=== PATIENT | male | born 1955 | race Caucasian/White ===

== ENCOUNTER 2017-05-20 02:53 | Emergency (ER) | payer MEDICARE, MEDICAID ==
[~2017-05-20] VITALS: Ht 177.8 cm; Wt 63.7 kg
[~2017-05-20 02:53] MED LIST: OXYC-302
[2017-05-20 03:00] VITALS: BP 114/72
== END 2017-05-20 03:59 | disposition left against medical advice (07) ==
LOC: ED 03:11
DX: M70.41 Prepatellar bursitis, right knee (principal); Y93.89 Activity, other specified; M25.561 Pain in right knee
CPT/HCPCS: 99283

== ENCOUNTER 2018-03-25 16:20 | Inpatient (IN) | payer MEDICARE, MEDICAID ==
[~2018-03-25] VITALS: Ht 177.8 cm; Wt 62.0 kg
[2018-03-25 17:16] LABS: PLATELET COUNT 199 x10^3/uL (130-400)
[2018-03-25 17:21] LABS: MEAN CORPUSCULAR HEMOGLOBIN 32.4 pg (27.5-34.5); MEAN CORPUSCULAR HGB CONC 33.7 g/dL (33.2-36.2); MEAN CORPUSCULAR VOLUME 96.1 fL (81-97); MEAN PLATELET VOLUME 7.3 fL (7.4-10.4); RED BLOOD COUNT 4.89 x10^6/uL (4.38-5.82); RED CELL DISTRIBUTION WIDTH 12.6 % (9.4-14.8)
[2018-03-25 17:23] LABS: BASOPHILS # (AUTO) 0.03 x10^3/uL (0-0.1); BASOPHILS % (AUTO) 0 % (0-1); EOSINOPHILS # (AUTO) 0.21 x10^3/uL (0-0.4); EOSINOPHILS % (AUTO) 2 % (1-7); LYMPHOCYTES # (AUTO) 2.24 x10^3/uL (1-3.4); LYMPHOCYTES % (AUTO) 25 % (22-44); MD NO; MONOCYTES # (AUTO) 0.61 x10^3/uL (0.2-0.8); MONOCYTES % (AUTO) 7 % (2-9); NEUTROPHILS # (AUTO) 5.79 x10^3/uL (1.8-6.8); NEUTROPHILS % (AUTO) 65 % (42-75)
[2018-03-25] MEDS ORDERED: EFAV1TAB PO (17:28)
[2018-03-25] MEDS ORDERED: LITH150C PO (17:28)
[2018-03-25] MEDS ORDERED: RISP0.2518 PO (17:28)
[2018-03-25 17:34] LABS: ALANINE AMINOTRANSFERASE 21 U/L (12-78); ALBUMIN 4.1 g/dL (3.4-5.0); ANION GAP 5 mmol/L (5-15); CALCIUM 8.6 mg/dL (8.5-10.1); CHLORIDE 106 mmol/L (98-107); SALICYLATE LEVEL 2.5 mg/dL (2.8-20.0)
[2018-03-25 17:36] LABS: ALKALINE PHOSPHATASE 91 U/L (45-117); BILIRUBIN,TOTAL 0.5 mg/dL (0.2-1.0); CREATININE 0.92 mg/dL (0.7-1.3); TOTAL PROTEIN 8.1 g/dL (6.4-8.2)
[2018-03-25 17:37] LABS: ACETAMINOPHEN < 2 mcg/mL (10-30)
[2018-03-25 19:31] LABS: AMPHETAMINE SCREEN, URINE Negative (Negative); BARBITURATE SCREEN, URINE Negative (Negative); BENZODIAZEPINE SCREEN, URINE Negative (Negative); CANNABINOID SCREEN, URINE Negative (Negative); COCAINE SCREEN, URINE Negative (Negative); METHADONE SCREEN, URINE Negative (Negative); OPIATE SCREEN, URINE Negative (Negative)
[2018-03-26] MEDS ORDERED: LORazepam 2 MG/ML, 1ML IM PRN (04:30)
[2018-03-26] MEDS: CHLORDIAZEPOXIDE 25 MG CAPSULE PO SCH (08:45)
[2018-03-26] MEDS: EFAVIRENZ/EMTRICITAB/TENOFOVIR 600MG-200MG-300MG TABLET PO SCH (08:45)
[2018-03-26 09:01] LABS: CLOSTRIDIUM DIFFICILE ANTIGEN NEGATIVE; CLOSTRIDIUM DIFFICILE TOXIN NEGATIVE (Negative)
[2018-03-26 09:31] LABS: CRYPTOSPORIDIUM ANTIGEN Negative (Negative)
[2018-03-26 19:30] VITALS: BP 139/85
[2018-03-26] MEDS: DIPHENOXYLATE/ATROPINE TABLET PO PRN (22:53)
[2018-03-26] MEDS: RISPERIDONE 1 MG TABLET PO SCH (22:53)
[2018-03-26 23:10] VITALS: BP 139/85
[2018-03-27] MEDS: CHLORDIAZEPOXIDE 25 MG CAPSULE PO SCH ×3 (00:10→22:18)
[2018-03-27] MEDS: EFAVIRENZ/EMTRICITAB/TENOFOVIR 600MG-200MG-300MG TABLET PO SCH ×3 (00:11→22:22)
[2018-03-27 01:15] VITALS: BP 105/62
[2018-03-27] MEDS: NICOTINE 21 MG/24 HR PATCH.TD24 TD SCH (05:35)
[2018-03-27 06:52] VITALS: BP 90/61
[2018-03-27 10:39] LABS: BASOPHILS # (AUTO) 0.02 x10^3/uL (0-0.1); BASOPHILS % (AUTO) 0 % (0-1); EOSINOPHILS % (AUTO) 3 % (1-7); LYMPHOCYTES # (AUTO) 1.83 x10^3/uL (1-3.4); LYMPHOCYTES % (AUTO) 31 % (22-44); MD NO; MEAN CORPUSCULAR HEMOGLOBIN 33.3 pg (27.5-34.5); MEAN CORPUSCULAR HGB CONC 34.5 g/dL (33.2-36.2); MEAN CORPUSCULAR VOLUME 96.6 fL (81-97); MEAN PLATELET VOLUME 7.2 fL (7.4-10.4); MONOCYTES # (AUTO) 0.42 x10^3/uL (0.2-0.8); MONOCYTES % (AUTO) 7 % (2-9); NEUTROPHILS % (AUTO) 58 % (42-75); PLATELET COUNT 177 x10^3/uL (130-400); RED BLOOD COUNT 4.58 x10^6/uL (4.38-5.82); RED CELL DISTRIBUTION WIDTH 12.9 % (9.4-14.8)
[2018-03-27 10:51] LABS: ALANINE AMINOTRANSFERASE 18 U/L (12-78); ALBUMIN 3.6 g/dL (3.4-5.0); ANION GAP 6 mmol/L (5-15); CALCIUM 8.3 mg/dL (8.5-10.1); CHLORIDE 111 mmol/L (98-107); CREATININE 0.92 mg/dL (0.7-1.3)
[2018-03-27 10:53] LABS: ALKALINE PHOSPHATASE 80 U/L (45-117); BILIRUBIN,TOTAL 0.8 mg/dL (0.2-1.0)
[2018-03-27 13:22] VITALS: BP 105/71
[2018-03-27] MEDS: OXYcodone IR 5MG TABLET PO PRN (17:50)
[2018-03-27 19:39] VITALS: BP 122/83
[2018-03-27] MEDS: RISPERIDONE 1 MG TABLET PO SCH (22:18)
[2018-03-28 02:08] VITALS: BP 98/67
[2018-03-28] MEDS: OXYcodone IR 5MG TABLET PO PRN (02:58)
[2018-03-28] MEDS: NICOTINE 21 MG/24 HR PATCH.TD24 TD SCH (05:50)
[2018-03-28 07:41] VITALS: BP 108/71
[2018-03-28] MEDS: DIPHENOXYLATE/ATROPINE TABLET PO PRN (08:42)
[2018-03-28] MEDS: CHLORDIAZEPOXIDE 25 MG CAPSULE PO SCH ×2 (08:42→20:17)
[2018-03-28] MEDS: EFAVIRENZ/EMTRICITAB/TENOFOVIR 600MG-200MG-300MG TABLET PO SCH ×2 (08:42→20:16)
[2018-03-28 15:29] VITALS: BP 112/78
[2018-03-28 19:49] VITALS: BP 118/74
[2018-03-28] MEDS: RISPERIDONE 1 MG TABLET PO SCH (20:17)
[2018-03-29 01:25] VITALS: BP 112/69
[2018-03-29 04:39] LABS: ANION GAP 5 mmol/L (5-15); CHLORIDE 109 mmol/L (98-107); CREATININE 0.97 mg/dL (0.7-1.3)
[2018-03-29] MEDS: NICOTINE 21 MG/24 HR PATCH.TD24 TD SCH ×2 (04:49→04:52)
[2018-03-29 07:24] VITALS: BP 110/74
[2018-03-29] MEDS: CHLORDIAZEPOXIDE 25 MG CAPSULE PO SCH ×2 (10:50→21:15)
[2018-03-29] MEDS: LOPERAMIDE 2 MG CAPSULE PO SCH ×3 (10:50→23:30)
[2018-03-29] MEDS: EFAVIRENZ/EMTRICITAB/TENOFOVIR 600MG-200MG-300MG TABLET PO SCH ×2 (10:50→21:14)
[2018-03-29 14:03] VITALS: BP 117/80
[2018-03-29 19:03] VITALS: BP 120/77
[2018-03-29] MEDS: RISPERIDONE 1 MG TABLET PO SCH (21:15)
[2018-03-30 01:27] VITALS: BP 93/63
[2018-03-30] MEDS: LOPERAMIDE 2 MG CAPSULE PO SCH ×4 (05:11→21:31)
[2018-03-30] MEDS: NICOTINE 21 MG/24 HR PATCH.TD24 TD SCH (05:12)
[2018-03-30 07:42] VITALS: BP 110/72
[2018-03-30] MEDS: CHLORDIAZEPOXIDE 25 MG CAPSULE PO SCH ×2 (08:33→21:31)
[2018-03-30] MEDS: EFAVIRENZ/EMTRICITAB/TENOFOVIR 600MG-200MG-300MG TABLET PO SCH ×2 (08:33→21:31)
[2018-03-30 12:45] VITALS: BP 96/66
[2018-03-30 18:37] VITALS: BP 117/72
[2018-03-30] MEDS: RISPERIDONE 1 MG TABLET PO SCH (21:31)
[2018-03-31 01:32] VITALS: BP 105/73
[2018-03-31] MEDS: LOPERAMIDE 2 MG CAPSULE PO SCH ×4 (03:19→21:49)
[2018-03-31] MEDS: NICOTINE 21 MG/24 HR PATCH.TD24 TD SCH (05:23)
[2018-03-31 07:28] VITALS: BP 102/69
[2018-03-31] MEDS: CHLORDIAZEPOXIDE 25 MG CAPSULE PO SCH ×2 (09:21→20:04)
[2018-03-31] MEDS: EFAVIRENZ/EMTRICITAB/TENOFOVIR 600MG-200MG-300MG TABLET PO SCH ×2 (09:21→20:04)
[2018-03-31 14:34] VITALS: BP 109/69
[2018-03-31] MEDS: OXYcodone IR 5MG TABLET PO PRN ×2 (15:10→20:09)
[2018-03-31] MEDS: DIPHENOXYLATE/ATROPINE TABLET PO PRN (15:10)
[2018-03-31 19:52] VITALS: BP 97/65
[2018-03-31] MEDS: RISPERIDONE 1 MG TABLET PO SCH (20:04)
[2018-04-01 02:55] VITALS: BP 95/62
[2018-04-01] MEDS: LOPERAMIDE 2 MG CAPSULE PO SCH ×3 (02:59→15:46)
[2018-04-01 10:00] VITALS: BP 95/60
[2018-04-01] MEDS: CHLORDIAZEPOXIDE 25 MG CAPSULE PO SCH ×2 (11:16→20:04)
[2018-04-01] MEDS: EFAVIRENZ/EMTRICITAB/TENOFOVIR 600MG-200MG-300MG TABLET PO SCH ×2 (11:17→20:04)
[2018-04-01] MEDS: NICOTINE 21 MG/24 HR PATCH.TD24 TD SCH (11:17)
[2018-04-01] MEDS: OXYcodone IR 5MG TABLET PO PRN ×3 (11:50→20:04)
[2018-04-01 14:45] VITALS: BP 116/75
[2018-04-01 19:15] VITALS: BP 105/68
[2018-04-01] MEDS: RISPERIDONE 1 MG TABLET PO SCH (20:04)
[2018-04-02 00:13] VITALS: BP 99/63
[2018-04-02 07:07] VITALS: BP 106/72
[2018-04-02] MEDS: LOPERAMIDE 2 MG CAPSULE PO PRN (09:56)
[2018-04-02] MEDS: CHLORDIAZEPOXIDE 25 MG CAPSULE PO SCH (09:56)
[2018-04-02] MEDS: EFAVIRENZ/EMTRICITAB/TENOFOVIR 600MG-200MG-300MG TABLET PO SCH ×2 (09:56→21:02)
[2018-04-02] MEDS: NICOTINE 21 MG/24 HR PATCH.TD24 TD SCH (09:57)
[2018-04-02 13:24] VITALS: BP 105/68
[2018-04-02 18:37] VITALS: BP 109/68
[2018-04-02] MEDS ORDERED: QUETIAPINE 100MG TABLET PO SCH (21:00)
[2018-04-02] MEDS: DIPHENOXYLATE/ATROPINE TABLET PO PRN (21:01)
[2018-04-02] MEDS: LITHIUM CARBONATE 150 MG CAPSULE PO SCH (21:02)
[2018-04-03 03:13] VITALS: BP 92/56
[2018-04-03 07:41] VITALS: BP 110/75
[2018-04-03] MEDS: LITHIUM CARBONATE 150 MG CAPSULE PO SCH ×2 (08:17→19:38)
[2018-04-03] MEDS: EFAVIRENZ/EMTRICITAB/TENOFOVIR 600MG-200MG-300MG TABLET PO SCH ×2 (08:17→19:39)
[2018-04-03] MEDS: LOPERAMIDE 2 MG CAPSULE PO PRN (08:18)
[2018-04-03] MEDS: NICOTINE 21 MG/24 HR PATCH.TD24 TD SCH (08:18)
[2018-04-03 15:54] VITALS: BP 110/70
[2018-04-03 18:24] VITALS: BP 119/73
[2018-04-03] MEDS: QUETIAPINE 100MG TABLET PO SCH (19:39)
[2018-04-04 00:32] VITALS: BP 100/55
[2018-04-04] MEDS ORDERED: LORazepam 1MG TABLET ONE (00:40)
[2018-04-04 07:20] VITALS: BP 95/61
[2018-04-04] MEDS: LITHIUM CARBONATE 150 MG CAPSULE PO SCH ×2 (08:46→19:37)
[2018-04-04] MEDS: EFAVIRENZ/EMTRICITAB/TENOFOVIR 600MG-200MG-300MG TABLET PO SCH ×2 (08:46→19:37)
[2018-04-04] MEDS: NICOTINE 21 MG/24 HR PATCH.TD24 TD SCH (08:48)
[2018-04-04] MEDS: DIPHENOXYLATE/ATROPINE TABLET PO PRN ×2 (08:58→14:17)
[2018-04-04] MEDS: LOPERAMIDE 2 MG CAPSULE PO PRN (11:01)
[2018-04-04 13:24] VITALS: BP 129/78
[2018-04-04] MEDS: QUETIAPINE 100MG TABLET PO SCH (19:38)
[2018-04-04 19:40] VITALS: BP 113/73
[2018-04-05 01:31] VITALS: BP 95/59
[2018-04-05 08:29] VITALS: BP 100/62
[2018-04-05] MEDS: LITHIUM CARBONATE 150 MG CAPSULE PO SCH ×2 (10:35→21:58)
[2018-04-05] MEDS: NICOTINE 21 MG/24 HR PATCH.TD24 TD SCH (10:35)
[2018-04-05] MEDS: EFAVIRENZ/EMTRICITAB/TENOFOVIR 600MG-200MG-300MG TABLET PO SCH ×2 (10:36→21:58)
[2018-04-05 14:55] VITALS: BP 103/65
[2018-04-05 19:34] VITALS: BP 112/71
[2018-04-05] MEDS: QUETIAPINE 100MG TABLET PO SCH (21:58)
[2018-04-06 01:17] VITALS: BP 104/72
[2018-04-06 07:26] VITALS: BP 108/69
[2018-04-06] MEDS: LITHIUM CARBONATE 150 MG CAPSULE PO SCH ×2 (07:55→21:00)
[2018-04-06] MEDS: DIPHENOXYLATE/ATROPINE TABLET PO PRN (07:55)
[2018-04-06] MEDS: NICOTINE 21 MG/24 HR PATCH.TD24 TD SCH (07:55)
[2018-04-06] MEDS: LOPERAMIDE 2 MG CAPSULE PO PRN (07:55)
[2018-04-06] MEDS: EFAVIRENZ/EMTRICITAB/TENOFOVIR 600MG-200MG-300MG TABLET PO SCH ×2 (07:55→21:00)
[2018-04-06 13:31] VITALS: BP 121/76
[2018-04-06] MEDS ORDERED: LOPERAMIDE 2 MG CAPSULE PO PRN (16:00)
[2018-04-06 17:40] VITALS: BP 126/68
[2018-04-06 20:27] VITALS: BP 106/67
[2018-04-06] MEDS: QUETIAPINE 100MG TABLET PO SCH (21:00)
[2018-04-07] MEDS: LITHIUM CARBONATE 150 MG CAPSULE PO SCH ×3 (02:02→21:21)
[2018-04-07] MEDS: QUETIAPINE 100MG TABLET PO SCH ×2 (02:03→21:21)
[2018-04-07] MEDS: EFAVIRENZ/EMTRICITAB/TENOFOVIR 600MG-200MG-300MG TABLET PO SCH ×2 (02:16→17:42)
[2018-04-07 08:00] VITALS: BP 114/72
[2018-04-07] MEDS: NICOTINE 21 MG/24 HR PATCH.TD24 TD SCH (09:33)
[2018-04-07 19:58] VITALS: BP 109/70
[2018-04-07] MEDS: PANCRELIPASE 24,000 CAPSULE.DR PO SCH (20:00)
[2018-04-08] MEDS: PANCRELIPASE 24,000 CAPSULE.DR PO SCH ×3 (08:08→17:01)
[2018-04-08 08:44] VITALS: BP 122/81
[2018-04-08] MEDS: NICOTINE 21 MG/24 HR PATCH.TD24 TD SCH (09:04)
[2018-04-08] MEDS: LITHIUM CARBONATE 150 MG CAPSULE PO SCH ×2 (09:04→21:26)
[2018-04-08] MEDS: EFAVIRENZ/EMTRICITAB/TENOFOVIR 600MG-200MG-300MG TABLET PO SCH ×2 (09:53→21:28)
[2018-04-08 19:43] VITALS: BP 107/69
[2018-04-08] MEDS: QUETIAPINE 100MG TABLET PO SCH (21:27)
[2018-04-09] MEDS: PANCRELIPASE 24,000 CAPSULE.DR PO SCH ×3 (08:13→16:34)
[2018-04-09 08:30] VITALS: BP 125/81
[2018-04-09] MEDS: EFAVIRENZ/EMTRICITAB/TENOFOVIR 600MG-200MG-300MG TABLET PO SCH ×2 (09:04→21:29)
[2018-04-09] MEDS: LITHIUM CARBONATE 150 MG CAPSULE PO SCH ×2 (09:04→21:29)
[2018-04-09] MEDS: NICOTINE 21 MG/24 HR PATCH.TD24 TD SCH (09:04)
[2018-04-09 19:47] VITALS: BP 132/80
[2018-04-09] MEDS: QUETIAPINE 100MG TABLET PO SCH (21:29)
[2018-04-10 08:00] VITALS: BP 128/75
[2018-04-10] MEDS: PANCRELIPASE 24,000 CAPSULE.DR PO SCH ×3 (09:15→16:30)
[2018-04-10] MEDS: NICOTINE 21 MG/24 HR PATCH.TD24 TD SCH (09:15)
[2018-04-10] MEDS: LITHIUM CARBONATE 150 MG CAPSULE PO SCH ×2 (09:15→20:29)
[2018-04-10 09:40] VITALS: BP 160/92
[2018-04-10] MEDS: EFAVIRENZ/EMTRICITAB/TENOFOVIR 600MG-200MG-300MG TABLET PO SCH ×2 (09:49→20:28)
[2018-04-10] MEDS: ONDANSETRON ODT 4 MG PO PRN (11:50)
[2018-04-10 14:46] LABS: BASOPHILS # (AUTO) 0.03 x10^3/uL (0-0.1); BASOPHILS % (AUTO) 1 % (0-1); EOSINOPHILS # (AUTO) 0.09 x10^3/uL (0-0.4); EOSINOPHILS % (AUTO) 2 % (1-7); LYMPHOCYTES # (AUTO) 1.64 x10^3/uL (1-3.4); LYMPHOCYTES % (AUTO) 29 % (22-44); MD NO; MEAN CORPUSCULAR HEMOGLOBIN 32.7 pg (27.5-34.5); MEAN CORPUSCULAR HGB CONC 34.3 g/dL (33.2-36.2); MEAN CORPUSCULAR VOLUME 95.3 fL (81-97); MEAN PLATELET VOLUME 7.4 fL (7.4-10.4); MONOCYTES # (AUTO) 0.44 x10^3/uL (0.2-0.8); MONOCYTES % (AUTO) 8 % (2-9); NEUTROPHILS # (AUTO) 3.43 x10^3/uL (1.8-6.8); NEUTROPHILS % (AUTO) 61 % (42-75); PLATELET COUNT 196 x10^3/uL (130-400)
[2018-04-10 14:56] LABS: ALBUMIN 4.1 g/dL (3.4-5.0); ANION GAP 5 mmol/L (5-15); CALCIUM 9.2 mg/dL (8.5-10.1); CHLORIDE 106 mmol/L (98-107)
[2018-04-10 15:00] LABS: ALANINE AMINOTRANSFERASE 46 U/L (12-78); ALKALINE PHOSPHATASE 85 U/L (45-117); BILIRUBIN,TOTAL 0.6 mg/dL (0.2-1.0); CREATININE 0.98 mg/dL (0.7-1.3); TOTAL PROTEIN 8.3 g/dL (6.4-8.2)
[2018-04-10 19:49] VITALS: BP 130/81
[2018-04-10] MEDS: QUETIAPINE 100MG TABLET PO SCH (20:32)
[2018-04-10] MEDS: OXYcodone IR 5MG TABLET PO PRN (22:56)
[2018-04-11 08:32] VITALS: BP 106/62
[2018-04-11] MEDS: ONDANSETRON ODT 4 MG PO PRN ×2 (09:25→09:26)
[2018-04-11] MEDS: NICOTINE 21 MG/24 HR PATCH.TD24 TD SCH ×2 (09:26→09:30)
[2018-04-11] MEDS: EFAVIRENZ/EMTRICITAB/TENOFOVIR 600MG-200MG-300MG TABLET PO SCH ×2 (09:26→22:10)
[2018-04-11] MEDS: LITHIUM CARBONATE 150 MG CAPSULE PO SCH ×2 (09:27→22:09)
[2018-04-11] MEDS: PANCRELIPASE 24,000 CAPSULE.DR PO SCH ×3 (09:52→16:35)
[2018-04-11 16:40] VITALS: BP 95/62
[2018-04-11 17:23] VITALS: BP 97/56
[2018-04-11 17:28] LABS: BASOPHILS # (AUTO) 0.02 x10^3/uL (0-0.1); BASOPHILS % (AUTO) 0 % (0-1); EOSINOPHILS # (AUTO) 0.12 x10^3/uL (0-0.4); EOSINOPHILS % (AUTO) 2 % (1-7); LYMPHOCYTES # (AUTO) 2.06 x10^3/uL (1-3.4); LYMPHOCYTES % (AUTO) 35 % (22-44); MD NO; MEAN CORPUSCULAR HEMOGLOBIN 33.1 pg (27.5-34.5); MEAN CORPUSCULAR HGB CONC 35.1 g/dL (33.2-36.2); MEAN CORPUSCULAR VOLUME 94.5 fL (81-97); MEAN PLATELET VOLUME 7.6 fL (7.4-10.4); MONOCYTES % (AUTO) 9 % (2-9); NEUTROPHILS # (AUTO) 3.17 x10^3/uL (1.8-6.8); NEUTROPHILS % (AUTO) 54 % (42-75); PLATELET COUNT 177 x10^3/uL (130-400); RED BLOOD COUNT 5.21 x10^6/uL (4.38-5.82); RED CELL DISTRIBUTION WIDTH 13.4 % (9.4-14.8)
[2018-04-11 17:35] LABS: ALANINE AMINOTRANSFERASE 39 U/L (12-78); ANION GAP 7 mmol/L (5-15); CALCIUM 8.8 mg/dL (8.5-10.1); CHLORIDE 109 mmol/L (98-107); CREATININE 1.04 mg/dL (0.7-1.3)
[2018-04-11 17:38] LABS: ALKALINE PHOSPHATASE 90 U/L (45-117); BILIRUBIN,TOTAL 0.8 mg/dL (0.2-1.0); TOTAL PROTEIN 8.1 g/dL (6.4-8.2)
[2018-04-11 19:45] VITALS: BP 107/66
[2018-04-11] MEDS: QUETIAPINE 100MG TABLET PO SCH (22:10)
[2018-04-11] MEDS: SODIUM CHLORIDE 0.9% 1,000 ML IV SCH ×2 (22:10→23:40)
[2018-04-12 03:27] VITALS: BP 106/67
[2018-04-12] MEDS: SODIUM CHLORIDE 0.9% 1,000 ML IV SCH ×3 (04:46→20:43)
[2018-04-12 05:08] LABS: BASOPHILS # (AUTO) 0.03 x10^3/uL (0-0.1); BASOPHILS % (AUTO) 1 % (0-1); EOSINOPHILS # (AUTO) 0.22 x10^3/uL (0-0.4); EOSINOPHILS % (AUTO) 4 % (1-7); LYMPHOCYTES # (AUTO) 2.16 x10^3/uL (1-3.4); LYMPHOCYTES % (AUTO) 40 % (22-44); MD NO; MEAN CORPUSCULAR HEMOGLOBIN 33.2 pg (27.5-34.5); MEAN CORPUSCULAR HGB CONC 34.7 g/dL (33.2-36.2); MEAN CORPUSCULAR VOLUME 95.6 fL (81-97); MEAN PLATELET VOLUME 7.4 fL (7.4-10.4); MONOCYTES # (AUTO) 0.51 x10^3/uL (0.2-0.8); MONOCYTES % (AUTO) 9 % (2-9); NEUTROPHILS # (AUTO) 2.46 x10^3/uL (1.8-6.8); NEUTROPHILS % (AUTO) 46 % (42-75); PLATELET COUNT 162 x10^3/uL (130-400); RED BLOOD COUNT 4.72 x10^6/uL (4.38-5.82); RED CELL DISTRIBUTION WIDTH 13.4 % (9.4-14.8)
[2018-04-12 05:19] LABS: ALBUMIN 3.6 g/dL (3.4-5.0); ANION GAP 5 mmol/L (5-15); CALCIUM 8.4 mg/dL (8.5-10.1); CHLORIDE 112 mmol/L (98-107)
[2018-04-12 05:20] LABS: CREATININE 1.03 mg/dL (0.7-1.3)
[2018-04-12] MEDS ORDERED: POTASSIUM CHLORIDE 40 MEQ in SODIUM CHLORIDE 0.9% 500 ML IV ONE ×2 (05:30→11:30)
[2018-04-12] MEDS: NICOTINE 21 MG/24 HR PATCH.TD24 TD SCH (09:39)
[2018-04-12] MEDS: CALCIUM CARBONATE 500 MG TABLET PO SCH ×2 (09:39→20:39)
[2018-04-12] MEDS: EFAVIRENZ/EMTRICITAB/TENOFOVIR 600MG-200MG-300MG TABLET PO SCH ×2 (09:39→20:39)
[2018-04-12] MEDS: PANCRELIPASE 24,000 CAPSULE.DR PO SCH ×3 (09:39→16:12)
[2018-04-12] MEDS: LITHIUM CARBONATE 150 MG CAPSULE PO SCH ×2 (09:39→20:39)
[2018-04-12] MEDS: ONDANSETRON ODT 4 MG PO PRN ×2 (09:41→15:48)
[2018-04-12 10:01] LABS: CLOSTRIDIUM DIFFICILE ANTIGEN NEGATIVE; CLOSTRIDIUM DIFFICILE TOXIN NEGATIVE (Negative)
[2018-04-12 13:05] VITALS: BP 96/59
[2018-04-12 15:44] LABS: CRYPTOSPORIDIUM ANTIGEN Negative (Negative)
[2018-04-12 17:40] VITALS: BP 116/74
[2018-04-12 18:56] VITALS: BP 124/83
[2018-04-12] MEDS: QUETIAPINE 100MG TABLET PO SCH (20:39)
[2018-04-13 02:28] VITALS: BP 111/74
[2018-04-13] MEDS: SODIUM CHLORIDE 0.9% 1,000 ML IV SCH ×2 (03:31→13:00)
[2018-04-13 05:24] LABS: BASOPHILS # (AUTO) 0.03 x10^3/uL (0-0.1); BASOPHILS % (AUTO) 1 % (0-1); EOSINOPHILS # (AUTO) 0.27 x10^3/uL (0-0.4); EOSINOPHILS % (AUTO) 6 % (1-7); LYMPHOCYTES # (AUTO) 1.86 x10^3/uL (1-3.4); LYMPHOCYTES % (AUTO) 39 % (22-44); MD NO; MEAN CORPUSCULAR HEMOGLOBIN 32.6 pg (27.5-34.5); MEAN CORPUSCULAR HGB CONC 34.6 g/dL (33.2-36.2); MEAN CORPUSCULAR VOLUME 94.3 fL (81-97); MEAN PLATELET VOLUME 7.7 fL (7.4-10.4); MONOCYTES # (AUTO) 0.46 x10^3/uL (0.2-0.8); MONOCYTES % (AUTO) 10 % (2-9); NEUTROPHILS # (AUTO) 2.13 x10^3/uL (1.8-6.8); NEUTROPHILS % (AUTO) 45 % (42-75); PLATELET COUNT 160 x10^3/uL (130-400); RED BLOOD COUNT 4.35 x10^6/uL (4.38-5.82); RED CELL DISTRIBUTION WIDTH 13.4 % (9.4-14.8)
[2018-04-13 05:34] LABS: ALBUMIN 3.3 g/dL (3.4-5.0); ANION GAP 5 mmol/L (5-15); CHLORIDE 114 mmol/L (98-107)
[2018-04-13 05:35] LABS: CREATININE 0.82 mg/dL (0.7-1.3)
[2018-04-13] MEDS ORDERED: POTASSIUM CHLORIDE 40 MEQ in SODIUM CHLORIDE 0.9% 500 ML IV ONE (06:30)
[2018-04-13 07:26] VITALS: BP 120/76
[2018-04-13] MEDS: PANCRELIPASE 24,000 CAPSULE.DR PO SCH ×3 (08:00→17:55)
[2018-04-13] MEDS: NICOTINE 21 MG/24 HR PATCH.TD24 TD SCH (09:00)
[2018-04-13] MEDS: LITHIUM CARBONATE 150 MG CAPSULE PO SCH ×2 (09:58→20:59)
[2018-04-13] MEDS: ONDANSETRON ODT 4 MG PO PRN (09:58)
[2018-04-13] MEDS: EFAVIRENZ/EMTRICITAB/TENOFOVIR 600MG-200MG-300MG TABLET PO SCH ×2 (09:59→21:00)
[2018-04-13] MEDS: CALCIUM CARBONATE 500 MG TABLET PO SCH ×2 (09:59→20:59)
[2018-04-13 13:33] VITALS: BP 131/83
[2018-04-13 19:37] VITALS: BP 124/78
[2018-04-13] MEDS: QUETIAPINE 100MG TABLET PO SCH (21:00)
[2018-04-13] MEDS ORDERED: ACETAMINOPHEN 325 MG TABLET PO ONE (23:30)
[2018-04-14 00:47] VITALS: BP 118/79
[2018-04-14] MEDS: SODIUM CHLORIDE 0.9% 1,000 ML IV SCH ×3 (03:01→16:27)
[2018-04-14 04:37] LABS: BASOPHILS # (AUTO) 0.03 x10^3/uL (0-0.1); BASOPHILS % (AUTO) 1 % (0-1); EOSINOPHILS # (AUTO) 0.28 x10^3/uL (0-0.4); EOSINOPHILS % (AUTO) 5 % (1-7); LYMPHOCYTES # (AUTO) 2.07 x10^3/uL (1-3.4); LYMPHOCYTES % (AUTO) 39 % (22-44); MD NO; MEAN CORPUSCULAR HEMOGLOBIN 32.8 pg (27.5-34.5); MEAN CORPUSCULAR HGB CONC 34.6 g/dL (33.2-36.2); MEAN CORPUSCULAR VOLUME 94.9 fL (81-97); MEAN PLATELET VOLUME 7.4 fL (7.4-10.4); MONOCYTES # (AUTO) 0.55 x10^3/uL (0.2-0.8); MONOCYTES % (AUTO) 11 % (2-9); NEUTROPHILS # (AUTO) 2.33 x10^3/uL (1.8-6.8); NEUTROPHILS % (AUTO) 44 % (42-75); PLATELET COUNT 165 x10^3/uL (130-400); RED BLOOD COUNT 4.48 x10^6/uL (4.38-5.82); RED CELL DISTRIBUTION WIDTH 13.4 % (9.4-14.8)
[2018-04-14 04:50] LABS: ALBUMIN 3.5 g/dL (3.4-5.0); ANION GAP 4 mmol/L (5-15); CALCIUM 8.5 mg/dL (8.5-10.1); CHLORIDE 114 mmol/L (98-107)
[2018-04-14 04:51] LABS: CREATININE 0.83 mg/dL (0.7-1.3)
[2018-04-14 07:41] VITALS: BP 113/82
[2018-04-14] MEDS: LITHIUM CARBONATE 150 MG CAPSULE PO SCH ×2 (08:21→20:54)
[2018-04-14] MEDS: CALCIUM CARBONATE 500 MG TABLET PO SCH ×2 (08:21→20:54)
[2018-04-14] MEDS: PANCRELIPASE 24,000 CAPSULE.DR PO SCH ×3 (08:21→17:40)
[2018-04-14] MEDS: EFAVIRENZ/EMTRICITAB/TENOFOVIR 600MG-200MG-300MG TABLET PO SCH ×2 (08:21→20:54)
[2018-04-14] MEDS: NICOTINE 21 MG/24 HR PATCH.TD24 TD SCH (08:22)
[2018-04-14 12:46] VITALS: BP 130/80
[2018-04-14 19:17] VITALS: BP 135/83
[2018-04-14] MEDS: QUETIAPINE 100MG TABLET PO SCH (20:54)
[2018-04-14] MEDS: OXYcodone IR 5MG TABLET PO PRN (23:02)
[2018-04-15] MEDS: SODIUM CHLORIDE 0.9% 1,000 ML IV SCH ×4 (00:29→20:20)
[2018-04-15 01:10] VITALS: BP 133/85
[2018-04-15 07:32] VITALS: BP 113/67
[2018-04-15] MEDS: CALCIUM CARBONATE 500 MG TABLET PO SCH ×2 (08:30→20:20)
[2018-04-15] MEDS: LITHIUM CARBONATE 150 MG CAPSULE PO SCH (08:30)
[2018-04-15] MEDS: PANCRELIPASE 24,000 CAPSULE.DR PO SCH ×3 (08:30→17:29)
[2018-04-15] MEDS: NICOTINE 21 MG/24 HR PATCH.TD24 TD SCH (08:31)
[2018-04-15] MEDS: EFAVIRENZ/EMTRICITAB/TENOFOVIR 600MG-200MG-300MG TABLET PO SCH (08:36)
[2018-04-15] MEDS ORDERED: DIPHENOXYLATE/ATROPINE TABLET PO PRN (09:00)
[2018-04-15] MEDS ORDERED: EFAVIRENZ/EMTRICITAB/TENOFOVIR 600MG-200MG-300MG TABLET PO SCH (09:00)
[2018-04-15 13:41] VITALS: BP 130/84
[2018-04-15] MEDS: DIPHENOXYLATE/ATROPINE TABLET PO SCH ×2 (17:28→22:10)
[2018-04-15 19:27] VITALS: BP 122/80
[2018-04-15] MEDS: QUETIAPINE 100MG TABLET PO SCH (20:20)
[2018-04-16 01:13] VITALS: BP 101/58
[2018-04-16] MEDS: SODIUM CHLORIDE 0.9% 1,000 ML IV SCH ×4 (03:08→19:57)
[2018-04-16 05:47] LABS: ANION GAP 5 mmol/L (5-15); CALCIUM 8.1 mg/dL (8.5-10.1); CHLORIDE 115 mmol/L (98-107)
[2018-04-16 05:50] LABS: CREATININE 0.85 mg/dL (0.7-1.3)
[2018-04-16] MEDS: DIPHENOXYLATE/ATROPINE TABLET PO SCH ×4 (06:12→19:57)
[2018-04-16 07:30] VITALS: BP 106/80
[2018-04-16] MEDS: NICOTINE 21 MG/24 HR PATCH.TD24 TD SCH (09:00)
[2018-04-16] MEDS: PANCRELIPASE 24,000 CAPSULE.DR PO SCH ×3 (10:05→16:51)
[2018-04-16] MEDS: POTASSIUM CHLORIDE 20 MEQ TAB.ER.PRT PO SCH ×2 (10:06→16:52)
[2018-04-16] MEDS: CALCIUM CARBONATE 500 MG TABLET PO SCH ×2 (10:06→19:57)
[2018-04-16 14:00] VITALS: BP 106/80
[2018-04-16 19:06] VITALS: BP 134/84
[2018-04-16] MEDS: EFAVIRENZ/EMTRICITAB/TENOFOVIR 600MG-200MG-300MG TABLET PO SCH (19:57)
[2018-04-16] MEDS: QUETIAPINE 100MG TABLET PO SCH (19:57)
[2018-04-17 03:57] VITALS: BP 105/60
[2018-04-17] MEDS: SODIUM CHLORIDE 0.9% 1,000 ML IV SCH ×3 (05:53→20:32)
[2018-04-17] MEDS: DIPHENOXYLATE/ATROPINE TABLET PO SCH (05:53)
[2018-04-17 08:26] VITALS: BP 129/78
[2018-04-17] MEDS: NICOTINE 21 MG/24 HR PATCH.TD24 TD SCH (09:00)
[2018-04-17] MEDS: PANCRELIPASE 24,000 CAPSULE.DR PO SCH ×3 (09:12→17:16)
[2018-04-17] MEDS: POTASSIUM CHLORIDE 20 MEQ TAB.ER.PRT PO SCH ×2 (09:13→17:16)
[2018-04-17] MEDS: CALCIUM CARBONATE 500 MG TABLET PO SCH ×2 (09:13→20:33)
[2018-04-17 13:05] VITALS: BP 118/79
[2018-04-17 19:47] VITALS: BP 134/81
[2018-04-17] MEDS: QUETIAPINE 100MG TABLET PO SCH (20:33)
[2018-04-17] MEDS: EFAVIRENZ/EMTRICITAB/TENOFOVIR 600MG-200MG-300MG TABLET PO SCH (20:33)
[2018-04-18 01:34] VITALS: BP 126/78
[2018-04-18] MEDS: SODIUM CHLORIDE 0.9% 1,000 ML IV SCH ×4 (03:48→23:33)
[2018-04-18 08:11] VITALS: BP 118/82
[2018-04-18] MEDS: POTASSIUM CHLORIDE 20 MEQ TAB.ER.PRT PO SCH ×2 (08:46→16:13)
[2018-04-18] MEDS: PANCRELIPASE 24,000 CAPSULE.DR PO SCH ×3 (08:46→16:12)
[2018-04-18] MEDS: DIPHENOXYLATE/ATROPINE TABLET PO SCH ×2 (08:46→20:08)
[2018-04-18] MEDS: NICOTINE 21 MG/24 HR PATCH.TD24 TD SCH (08:47)
[2018-04-18] MEDS: CALCIUM CARBONATE 500 MG TABLET PO SCH ×2 (08:47→20:09)
[2018-04-18 14:14] VITALS: BP 132/78
[2018-04-18] MEDS: EFAVIRENZ/EMTRICITAB/TENOFOVIR 600MG-200MG-300MG TABLET PO SCH (20:08)
[2018-04-18] MEDS: QUETIAPINE 100MG TABLET PO SCH (20:09)
[2018-04-18 20:52] VITALS: BP 93/80
[2018-04-18] MEDS: OXYcodone IR 5MG TABLET PO PRN (22:17)
[2018-04-19 01:19] VITALS: BP 142/81
[2018-04-19] MEDS: SODIUM CHLORIDE 0.9% 1,000 ML IV SCH (05:36)
[2018-04-19 08:08] VITALS: BP 125/72
[2018-04-19] MEDS: POTASSIUM CHLORIDE 20 MEQ TAB.ER.PRT PO SCH ×2 (08:15→17:08)
[2018-04-19] MEDS: PANCRELIPASE 24,000 CAPSULE.DR PO SCH ×3 (08:15→17:08)
[2018-04-19] MEDS: CALCIUM CARBONATE 500 MG TABLET PO SCH ×2 (08:16→21:52)
[2018-04-19] MEDS: NICOTINE 21 MG/24 HR PATCH.TD24 TD SCH (08:16)
[2018-04-19 13:42] VITALS: BP 112/69
[2018-04-19 20:00] VITALS: BP 120/80
[2018-04-19 20:12] VITALS: BP 120/80
[2018-04-19] MEDS: EFAVIRENZ/EMTRICITAB/TENOFOVIR 600MG-200MG-300MG TABLET PO SCH (21:51)
[2018-04-19] MEDS: QUETIAPINE 100MG TABLET PO SCH (21:52)
[2018-04-19] MEDS: DIPHENOXYLATE/ATROPINE TABLET PO PRN (22:06)
[2018-04-20 07:36] VITALS: BP 101/74
[2018-04-20] MEDS: PANCRELIPASE 24,000 CAPSULE.DR PO SCH ×3 (08:28→17:35)
[2018-04-20] MEDS: POTASSIUM CHLORIDE 20 MEQ TAB.ER.PRT PO SCH ×2 (08:28→17:35)
[2018-04-20] MEDS: NICOTINE 21 MG/24 HR PATCH.TD24 TD SCH (08:29)
[2018-04-20] MEDS: CALCIUM CARBONATE 500 MG TABLET PO SCH ×2 (08:29→20:27)
[2018-04-20] MEDS: DIPHENOXYLATE/ATROPINE TABLET PO PRN (12:23)
[2018-04-20 19:44] VITALS: BP 115/74
[2018-04-20] MEDS: EFAVIRENZ/EMTRICITAB/TENOFOVIR 600MG-200MG-300MG TABLET PO SCH (20:27)
[2018-04-20] MEDS: QUETIAPINE 100MG TABLET PO SCH (20:27)
[2018-04-21 08:10] VITALS: BP 111/75
[2018-04-21] MEDS: PANCRELIPASE 24,000 CAPSULE.DR PO SCH ×3 (08:19→16:43)
[2018-04-21] MEDS: CALCIUM CARBONATE 500 MG TABLET PO SCH ×2 (08:19→20:42)
[2018-04-21] MEDS: NICOTINE 21 MG/24 HR PATCH.TD24 TD SCH (08:20)
[2018-04-21] MEDS: POTASSIUM CHLORIDE 20 MEQ TAB.ER.PRT PO SCH ×2 (08:20→16:43)
[2018-04-21 19:21] VITALS: BP 118/77
[2018-04-21] MEDS: EFAVIRENZ/EMTRICITAB/TENOFOVIR 600MG-200MG-300MG TABLET PO SCH (20:41)
[2018-04-21] MEDS: QUETIAPINE 100MG TABLET PO SCH (20:42)
[2018-04-21] MEDS: DIPHENOXYLATE/ATROPINE TABLET PO PRN (21:46)
[2018-04-22 07:44] VITALS: BP 109/74
[2018-04-22] MEDS: PANCRELIPASE 24,000 CAPSULE.DR PO SCH (07:48)
[2018-04-22] MEDS: POTASSIUM CHLORIDE 20 MEQ TAB.ER.PRT PO SCH (08:04)
[2018-04-22] MEDS: CALCIUM CARBONATE 500 MG TABLET PO SCH (08:04)
[2018-04-22] MEDS: NICOTINE 21 MG/24 HR PATCH.TD24 TD SCH (08:07)
[2018-04-22] MEDS ORDERED: QUET100T PO (11:06)
[2018-04-22] MEDS ORDERED: DIPH1TAB6 PO (11:09)
[2018-04-22] MEDS ORDERED: LIPA1CAP61 PO (11:09)
== END 2018-04-22 11:47 | DRG 392 ==
LOC: ED 21:47 → EDIP 03-26 02:46 → OBSVTOIN 03-26 17:22 → 3NW 03-26 19:28 → 3E 04-06 17:31 → 3NE 04-11 19:56 → 3E 04-19 19:58
PROVIDERS: ADMIT Internal Medicine; ATTEND Internal Medicine
DX: K52.9 Noninfective gastroenteritis and colitis, unspecified (principal); F33.2 Major depressive disorder, recurrent severe without psychotic features; R45.851 Suicidal ideations; F20.9 Schizophrenia, unspecified; G62.9 Polyneuropathy, unspecified; F29 Unspecified psychosis not due to a substance or known physiological condition; R15.9 Full incontinence of feces; F17.210 Nicotine dependence, cigarettes, uncomplicated; K59.00 Constipation, unspecified; R16.0 Hepatomegaly, not elsewhere classified; R32 Unspecified urinary incontinence; Z85.46 Personal history of malignant neoplasm of prostate; Z90.79 Acquired absence of other genital organ(s); Z91.5 Personal history of self-harm; Z21 Asymptomatic human immunodeficiency virus [HIV] infection status
CPT/HCPCS: 36415; 74177; 80048; 80053; 80178; 80307; 80329; 82040; 82705; 82784; 83516; 83735; 84100; 84443; 85025; 86361; 86698; 87015; 87046; 87206; 87207; 87252; 87324; 87328; 87329; 87385; 87427; 87536; 89055; 99285; G0378; J3480; Q0162; G0480; J7030; J7040